=== PATIENT | male | born 1980 | race African-American/Black ===

== ENCOUNTER 2019-11-14 12:41 | Observation (INO) ==
[2019-11-14 14:40] LABS: Calcium 8.9 mg/dl (8.5-10.1); Creatinine Clr Calc Pharmacy 64.5 ml/min; Est GFR (African American) 90.8; Est GFR (Non-African American) 78.4
[2019-11-14] MEDS ORDERED: CALCIUM GLUCONATE 10% 1,000 MG in SODIUM CHLORIDE 0.9% 50 ML IV STA (14:44)
[2019-11-14] MEDS ORDERED: SODIUM POLYSTYRENE SULFONATE 15G/60ML SUSP PO STA (15:43)
[2019-11-14] MEDS ORDERED: INSULIN HUMAN REGULAR PER UNIT 10 UNITS in SYRINGE 9.9 ML IV STA (15:43)
--- NOTE | 2019-11-14 18:20 | History & Physical Report ---
Date of Service November 14, 2019 Assessment & Plan (1) Hyperkalemia: Admit telemetry Potassium 7.4 today at the [facility], now 6.6 Given regular insulin, calcium gluconate and kayexalate in the ED Will give 20 mg IV lasix IVF NSS @ 125 ml/hr Recheck cmp tonight and am (2) Diabetes mellitus: Type I Hyperglycemic at the [facility] at 441, 256 now Reports he only takes 70/30 at home - will consult pharmacy for glycemic management Bsgs ac & hs (3) Depression: Per records from the [facility] - patient takes Risperdal 1 mg qam, Risperdal 2 mg po qhs, Mirtazapine 15 mg @ bedtime, lithium 300 mg po BID, Will continue these medications however patient reports that he has been refusing these medications Obtain lithium level am History of Present Illness Mr. Hartman presents from the [facility] for abnormal lab work notable for hyperglycemia and hyperkalemia . He has been at the [facility] for about a week after checking himself in for suicidal ideation which he reports a history of. Pmhx: depression, anxiety, DMI, neuropathy Socia: hx of incarceration for assault, smokes 1/2 oz of marijuana per day, smokes ppd x23 years, works for [employer] Primary Care Provider: Wyatt Arriola Allergies Allergy/AdvReac Type Severity Reaction Status Date / Time shellfish derived Allergy Anaphylaxis Verified 11/14/19 14:28 Home Medications Home Medications Medication Instructions Recorded Confirmed Type insulin aspart U-100 [Novolog 0 unit SUBCUT TID 11/14/19 11/14/19 History Flexpen U-100 Insulin] Past Med/Surg History Medical History Diabetes mellitus Surgical History No pertinent past surgical history Family History Other No pertinent family history Social History Preferred Language: Citizen Of The [place] Feels Safe at Home: Yes Smoking Status: Current every day smoker Review of Systems Constitutional: no fever and no chills Respiratory: no cough and no dyspnea Cardiovascular: no chest pain, no palpitations and no lightheadedness Gastrointestinal: no abdominal pain, no nausea, no vomiting, no constipation and no diarrhea/loose stools Genitourinary: no dysuria and no urinary frequency Musculoskeletal: no back pain, no neck pain and no joint pain Integumentary: no rash Neurologic: no dizziness and no headache(s) Endocrine: + fatigue; no polydipsia and no polyuria Physical Exam Physical Exam: General: no distress Eyes: normal inspection, PERLL Respiratory: chest non tender, clear to auscultation, normal breath sounds, no respiratory distress, no accessory muscle use Cardiac: regular rate and rhythm, no rub or gallop, no murmur, no edema, no jvd GI/: active bowel sounds, no abd pain or tenderness, soft, non distended Extremities: normal range of motion, normal strength, non tender Neuro/Psych: alert and oriented x 3, normal mood and affect Skin: normal color, dry Results & Data Vital Signs (Past 12 Hours) Vital Signs Temp Pulse Pulse Resp BP BP Pulse Ox 11/14/19 17:26 102 H 20 128/94 100 11/14/19 15:26 84 16 123/85 98 11/14/19 12:50 36.9 C 103 H 18 121/80 100 Code Status & VTE Plan Code Status full PG Care Time/CCT Total # of Minutes Spent Total Time Spent with Patient: Total time spent is greater than 50% in coordination of care (as documented) at patient's floor/unit and/or counseling patient: Coding Level of Care Code 03379 Initial Inpt Care Lvl 3 Diagnoses Hyperkalemia E87.5 Diabetes mellitus E11.9 Depression F32.9
--- NOTE | 2019-11-14 19:31 | Emergency Department Note ---
Entered by Vlad Milian acting as a scribe for Umberto Toribio History of Present Illness General Chief complaint: Abnormal Labs/Diagnostic Testing Stated complaint: HI POTASSIUM&BLOOD SUGER,DIABETIC Time Seen by Provider: 11/14/19 13:55 Source: patient History of Present Illness Onset (ago): hour(s) (this morning) Severity: severe (7.4) Pain Consistency: + constant Quality: + other (elevated potassium) Associated symptoms: no chest pain, no headaches and no shortness of breath The patient is a 39 y/o male who presents to the ED w/ CC of a elevated, potassium level of 7.4 beginning this morning. The patient states he is feeling "alright" and denies current discomfort. He reports a history of DM and has been taking his insulin. The patient notes he does not have any other medications. The patient is a voluntary admission at the [facility] and according to the notes from psychiatrist the patient has been eating a large amount of bananas recently. The patient denies chest pain, shortness of breath, and headaches. Home Medications Home Medications Medication Instructions Recorded Confirmed Type insulin aspart U-100 [Novolog 0 unit SUBCUT TID 11/14/19 11/14/19 History Flexpen U-100 Insulin] Allergies Allergy/AdvReac Type Severity Reaction Status Date / Time shellfish derived Allergy Anaphylaxis Verified 11/14/19 14:28 Past Med/Surg History Medical History Diabetes mellitus Surgical History No pertinent past surgical history Family History Other No pertinent family history Social History Preferred Language: Georgian Feels Safe at Home: Yes Smoking Status: Current every day smoker Review of Systems See HPI for pertinent positives & negatives. and A total of 10 systems reviewed and were otherwise negative Physical Exam Vital Signs Vital Signs - 24 hr 11/14/19 12:50 11/14/19 15:26 11/14/19 17:26 Temperature 36.9 C Temperature Source Oral Pulse Rate 103 H Pulse Rate [Apical] 84 102 H Pulse Rhythm Regular Pulse Rhythm [Apical] Regular Pulse Strength Normal Respiratory Rate 18 16 20 Respiratory Effort / Characteristics Non-Labored Spontaneous Non-Labored Spontaneous Non-Labored Spontaneous Respiratory Depth Normal Normal Normal Respiratory Pattern Regular Regular Blood Pressure 121/80 Blood Pressure [Right Arm] 123/85 128/94 Blood Pressure Mean 93 Blood Pressure Mean [Right Arm] 97 105 Blood Pressure Position Sitting Blood Pressure Position [Right Arm] Lying Pulse Oximetry 100 98 100 Oxygen Delivery Method Room Air Room Air Room Air Sepsis Recent Fever Within 48 Hours No Sepsis New/Unexplained Change in Mental Status No Sepsis Action Taken by Nursing No Action Required GENERAL: He is oriented to person, place, and time. He appears well-developed and well-nourished. He does not appear distressed. HENT: Exam performed. - Head: Normocephalic and atraumatic. - Right Ear: External ear normal. No mastoid tenderness. - Left Ear: External ear normal. No mastoid tenderness. - Mouth/Throat: The oropharynx is clear and moist. No trismus in the jaw. No dental abscesses or uvula swelling. No oropharyngeal exudate or tonsillar abscesses. EYES: Conjunctivae and EOM are normal. Pupils are equal, round, and reactive to light. Right eye exhibits no discharge. Left eye exhibits no discharge. No scleral icterus. NECK: Normal range of motion. Neck supple. No JVD present. No spinous process tenderness present. No carotid bruit present. No rigidity. No tracheal deviation and normal range of motion present. No Brudzinski's sign and no Kernig's sign noted. CV: Normal rate, regular rhythm, normal heart sounds and intact distal pulses. There is no peripheral edema. Palpable radial pulses bue. PULM/CHEST: Effort normal and breath sounds normal. No respiratory distress. No stridor. He has no wheezes. He has no rales. - Chest Wall: He exhibits no tenderness. ABD: The abdomen is soft. Bowel sounds are normal. He has no distension. No mass is present. There is no tenderness. There is no rebound, no guarding, no Singlteon's sign and no tenderness at McBurney's point. Rovsig negative. MUSC/SKEL: Normal range of motion. There is no peripheral edema, tenderness or deformity. LYMPH: No cervical adenopathy. NEURO: He is alert and oriented to person, place, and time. He has normal strength. No cranial nerve deficit or sensory deficit. Coordination and gait normal. GCS eye subscore is 4. GCS verbal subscore is 5. GCS motor subscore is 6. Cerebellar tests wnl. SKIN: Skin is warm and dry. He is not diaphoretic. PSYCH: He has a bizarre mood and affect. Behavior is normal. Judgment and thought content normal. Course Course 1355: Past medical records reviewed. The patient was evaluated in room C07. A complete history and physical exam was performed. Review of records from the [facility] shows the patient was given 28 units of Levemir. The patient had a glucose level of 441 and a potassium of 7.4. His EKG at the [facility], per my interpretation, was SR with a rate of 96. Intervals were wnl. Peak t-waves in leads I, II, III, AVF, and V2-V6. Per the notes from the psychiatrist, the patient be any a large quantity of bananas. 1547: Vital signs stable. Labs show hyperkalemia, potassium 6.6. The patient was given Kayexalate, calcium gluconate, and insulin in the ED to lower his potassium level. I reviewed the patient's case with Dr. Huang, [facility] Hospitalist. She will evaluate the patient for further management. Administered Medications Discontinued Medications Calcium Gluconate 1,000 mg/ (Sodium Chloride) 60 mls @ 240 mls/hr IV NOW STA Stop: 11/14/19 14:58 Last Infusion: 11/14/19 15:19 Dose: 0 mls/hr Documented by: [id number] Admin: 11/14/19 15:04 Dose: 240 mls/hr Documented by: [id number] Insulin Human Regular 10 units (/ Syringe) 9.9 mls @ 3 mls/sec IV ONE STA Stop: 11/14/19 15:44 Last Admin: 11/14/19 16:12 Dose: 3 mls/sec Documented by: [id number] Cosigned by: [id number] Sodium Polystyrene Sulfonate (Kayexalate) 15 gm PO NOW STA Stop: 11/14/19 15:44 Last Admin: 11/14/19 16:12 Dose: 15 gm Documented by: [id number] Critical Care Time Critical Care Time: Yes Total Critical Care Time: 37 I have personally spent 37 minutes of critical care time in the direct management of this patient. This includes bedside care, interpretation of diagnostic studies, and testing, discussion with consultants, patient, and family members, and other required patient management activities. This 37 minutes is in excess of all separately billable procedures. Medical Decision Making Medical Records Attestation: I reviewed the patient's medical records. Home Medications Current Medication List: was personally reviewed by me Laboratory Data Attestation: I reviewed the patient's lab results. Result diagrams: 11/14/19 15:00 Lab Results 11/14/19 11/14/19 11/14/19 Range/Units 12:48 14:08 15:00 Sodium 138 (136-145) mmol/L Potassium 6.6 H* (3.5-5.1) mmol/L Chloride 108 H (98-107) mmol/L Carbon Dioxide 28 (21-32) mmol/L Anion Gap 3.0 (3-11) BUN 26 H (7-18) mg/dl Creatinine 1.18 (0.6-1.4) mg/dl Est Cr Clr Drug Dosing 64.5 ml/min Est GFR ( Amer) 90.8 Est GFR (Non-Af Amer) 78.4 BUN/Creatinine Ratio 22.0 H (10-20) Glucose 270 H (70-99) mg/dl POC Glucose 273 H (70-99) mg/dl Calcium 8.9 (8.5-10.1) mg/dl 11/14/19 Range/Units 15:30 Sodium (136-145) mmol/L Potassium (3.5-5.1) mmol/L Chloride (98-107) mmol/L Carbon Dioxide (21-32) mmol/L Anion Gap (3-11) BUN (7-18) mg/dl Creatinine (0.6-1.4) mg/dl Est Cr Clr Drug Dosing ml/min Est GFR ( Amer) Est GFR (Non-Af Amer) BUN/Creatinine Ratio (10-20) Glucose (70-99) mg/dl POC Glucose 257 H (70-99) mg/dl Calcium (8.5-10.1) mg/dl ECG Data Attestation: I personally reviewed and interpreted this ECG as follows: Indication: + toxicologic Rate (beats per minute): 94 Rhythm: + sinus rhythm ECG Intervals/blocks: + Normal QRS and + Normal QT-c ECG ST segments: no ST depression and no ST elevation ECG Findings: + Peaked T waves (Leads I, II, III, AVF, V2-V6) Blood Pressure Blood Pressure Findings: Elevated blood pressure Blood Pressure Disposition: further management by hospitalist [place] Narrative 1355: Past medical records reviewed. The patient was evaluated in room C07. A co mplete history and physical exam was performed. Review of records from the [facility] shows the patient was given 28 units of Levemir. The patient had a glucose level of 441 and a potassium of 7.4. His EKG at the [facility], per my interpretation, was SR with a rate of 96. Intervals were wnl. Peak t-waves in leads I, II, III, AVF, and V2-V6. Per the notes from the psychiatrist, the patient be any a large quantity of bananas. 1547: Vital signs stable. Labs show hyperkalemia, potassium 6.6. The patient was given Kayexalate, calcium gluconate, and insulin in the ED to lower his potassium level. I reviewed the patient's case with Dr. Huang, [facility] Hospitalist. She will evaluate the patient for further management. Impression & Plan Hyperkalemia Discharge Plan Visit Data Chief Complaint: Abnormal Labs/Diagnostic Testing Stated Complaint: HI POTASSIUM&BLOOD SUGER,DIABETIC ED Provider: Umberto Toribio Discharge Problem: Hyperkalemia Patient Disposition: Being Evaluated by Hospitalist Discharge Instructions Interventions: ED Discharge Assessment Last Done: 11/14/19 19:11 Forms Stand Alone Forms: My [facility] Prescriptions Prescriptions: No Action insulin aspart U-100 [Novolog Flexpen U-100 Insulin] 100 unit/mL (3 mL) Insulin Pen 0 unit SUBCUT TID RF: 0 Referrals Referrals: Wyatt Arriola [Primary Care Provider] - The scribe's documentation has been prepared under my direction and personally reviewed by me in its entirety. I confirm that the note above accurately reflects all work, treatment, procedures, and medical decision making performed by me.
[2019-11-14] MEDS ORDERED: FUROSEMIDE 40 MG/4 ML VIAL IV STA (19:38)
[2019-11-14] MEDS ORDERED: PHARMACY GLYCEMIC MGMT CONSULT PRN (20:02)
[2019-11-14] MEDS ORDERED: CARBOHYDRATES FOR HYPOGLYCEMIA PO PRN (20:15)
[2019-11-14] MEDS ORDERED: DEXTROSE 50% 50 ML SYRINGE IV PRN (20:15)
[2019-11-14] MEDS ORDERED: GLUCOSE 40% GEL 15 GM TUBE PO PRN (20:15)
[2019-11-14] MEDS ORDERED: GLUCAGON FOR INJ 1 MG VIAL IM PRN (20:15)
[2019-11-14] MEDS ORDERED: GLUCOSE 10 TABS/TUBE PO PRN (20:15)
[2019-11-14 20:26] LABS: Basophils # (auto) 0.02 K/uL (0-0.2); Basophils % (auto) 0.2 %; Eosinophils % (auto) 0.9 %; Hematocrit (blood only) 34.1 % (42-52); Hemoglobin 11.6 g/dL (14.0-18.0); Immature Granulocytes # (auto) 0.05 K/uL (0.00-0.02); Immature Granulocytes % (auto) 0.4 %; Lymphocytes # (auto) 4.25 K/uL (1.2-3.4); Lymphocytes % (auto) 37.8 %; Mean Corpuscular Hemoglobin 28.9 pg (25-34); Mean Platelet Volume 8.8 fL (7.4-10.4); Monocytes # (auto) 0.96 K/uL (0.11-0.59); Monocytes % (auto) 8.5 %; Neutrophils # (auto) 5.86 K/uL (1.4-6.5); Neutrophils % (auto) 52.2 %; Platelet Count 505 K/uL (130-400); RDW Coefficient of Variation 14.5 % (11.5-14.5); Red Blood Count 4.01 M/uL (4.7-6.1); White Blood Count 11.24 K/uL (4.8-10.8)
[2019-11-14 20:53] LABS: Albumin Level 3.1 gm/dl (3.4-5.0); BUN Creatinine Ratio 20.1 (10-20); Calcium 9.2 mg/dl (8.5-10.1); Creatinine Clr Calc Pharmacy 64.4 ml/min; Est GFR (African American) 93.7; Est GFR (Non-African American) 80.8; Magnesium 2.3 mg/dl (1.8-2.4)
[2019-11-14 20:56] LABS: Albumin Globulin Ratio 0.8 (0.9-2); Bilirubin,Total 0.1 mg/dl (0.2-1); Globulin 4.1 gm/dl (2.5-4.0); Total Protein 7.2 gm/dl (6.4-8.2)
[2019-11-14 21:00] LABS: Potassium 5.4 mmol/L (3.5-5.1)
[2019-11-14] MEDS ORDERED: risperiDONE 2 MG TABLET PO SCH (21:00)
[2019-11-14] MEDS ORDERED: MIRTAZAPINE TAB 15 MG TAB PO SCH (21:00)
[2019-11-14] MEDS: SODIUM CHLORIDE 0.9% 1000ML 1,000 ML IV SCH (21:03)
[2019-11-14] MEDS: INSULIN HUMAN NPH SC SCH (21:03)
[2019-11-14] MEDS: INSULIN ASPART 100 UNITS/ML 3 ML PEN SC SCH (21:04)
[2019-11-14] MEDS: LITHIUM CARBONATE 300 MG TAB PO SCH (21:04)
--- NOTE | 2019-11-14 21:37 | Pharmacy Report ---
Glycemic Control Consultation - Date of Service November 14, 2019 - Scope Scope: Glycemic Pharmacist consulted for glycemic control and to write orders per [facility] inpatient glycemic control protocol - Objective Weight: 51.8 kg Accuchecks BSG (last 24hrs): 11/14/19 11/14/19 11/14/19 12:48 14:08 15:30 Glucose 270 H POC Glucose 273 H 257 H 11/14/19 11/14/19 19:58 20:04 Glucose 187 H POC Glucose 173 H Laboratory Data (last 24hrs): 11/14/19 11/14/19 11/14/19 14:08 15:00 20:04 Potassium 6.6 H* 5.4 H D Carbon Dioxide 28 29 Anion Gap 3.0 3.0 Creatinine 1.18 1.15 Est Cr Clr Drug Dosing 64.5 64.4 - Recent Pertinent Medications Outpatient Anti-diabetic Regimen: * 70/30 Pre-mixed insulin: 20 units SQ BIDM ? Pt unsure of dosing - Assessment & Plan Assessment & Plan: ASSESSMENT: * 39yo T1DM male with unknown degree of outpatient control. No recent A1c reported. Pt unsure of outpatient insulin dosing. * Outpatient regimen is premixed basal/prandial insulin of 70/30 mix insulin. * Pre-mixed insulin is difficult to titrate since it is already in a fixed distribution of basal:prandial insulin. Continuing pre-mixed insulin for admission typically lead to hypoglycemia d/t changing PO status but rapid acting insulin is unable to be held. * Home regimen will be held for admission per pharmacy consult. Will utilize recommended regimen of SQ basal bolus insulin regimen with individual components of NPH + NovoLog (CF+CR) * Outpatient dosing is ~ 40 units/day. Will split 50% basal : 50% prandial and titrate based on BSG trends. PLAN FOR INPATIENT GLYCEMIC CONTROL: * Basal insulin * NPH 10 units SQ BIDM * Bolus insulin * NovoLog per scale ACHS or Q6hrs while NPO * Goal Range: Low 110 mg/dL - High 140 mg/dL * Correction Factor: 40 mg/dL/unit * Nutritional / Prandial insulin per carb ratio of 1 unit per 13 grams CHO consumed * Please note that the plan above was derived based on current level of insulin resistance and hospital stress. These recommendations are appropriate for inpatient admission only. Plan of care upon discharge will need to be reassessed to avoid potential outpatient hypo/hyperglycemia. Thank you.
[2019-11-14] MEDS: PREGABALIN 75 MG CAP PO SCH (22:46)
[2019-11-15] MEDS: SODIUM CHLORIDE 0.9% 1000ML 1,000 ML IV SCH ×2 (04:31→13:07)
--- NOTE | 2019-11-15 06:38 | Electrocardiogram Report ---
Test Reason : Blood Pressure : / mmHG Vent. Rate : 094 BPM Atrial Rate : 094 BPM P-R Int : 130 ms QRS Dur : 076 ms QT Int : 326 ms P-R-T Axes : 062 046 052 degrees QTc Int : 407 ms Normal sinus rhythm Normal ECG No previous ECGs available Confirmed by Shubham Doyle ([id number]) on 11/15/2019 6:37:37 AM Referred By: Wyatt Arriola Confirmed By:Shubham Doyle
[2019-11-15 07:17] LABS: Basophils # (auto) 0.01 K/uL (0-0.2); Basophils % (auto) 0.1 %; Eosinophils # (auto) 0.12 K/uL (0-0.5); Eosinophils % (auto) 1.1 %; Hematocrit (blood only) 31.6 % (42-52); Hemoglobin 10.7 g/dL (14.0-18.0); Immature Granulocytes # (auto) 0.05 K/uL (0.00-0.02); Immature Granulocytes % (auto) 0.5 %; Lymphocytes # (auto) 4.38 K/uL (1.2-3.4); Lymphocytes % (auto) 41.8 %; Mean Corpuscular Hemoglobin 28.8 pg (25-34); Mean Corpuscular Hgb Conc 33.9 g/dL (32-36); Mean Corpuscular Volume 84.9 fL (80-100); Mean Platelet Volume 8.6 fL (7.4-10.4); Monocytes # (auto) 0.89 K/uL (0.11-0.59); Monocytes % (auto) 8.5 %; Neutrophils # (auto) 5.04 K/uL (1.4-6.5); Platelet Count 447 K/uL (130-400); RDW Coefficient of Variation 14.7 % (11.5-14.5); RDW Standard Deviation 45.8 fL (36.4-46.3); Red Blood Count 3.72 M/uL (4.7-6.1); White Blood Count 10.49 K/uL (4.8-10.8)
[2019-11-15 07:52] LABS: Albumin Level 2.4 gm/dl (3.4-5.0); BUN Creatinine Ratio 19.7 (10-20); Calcium 8.5 mg/dl (8.5-10.1); Creatinine Clr Calc Pharmacy 77.2 ml/min; Est GFR (African American) 112.3; Est GFR (Non-African American) 96.9
[2019-11-15 07:55] LABS: Albumin Globulin Ratio 0.6 (0.9-2); Bilirubin,Total 0.1 mg/dl (0.2-1); Globulin 3.7 gm/dl (2.5-4.0); Total Protein 6.1 gm/dl (6.4-8.2)
[2019-11-15] MEDS: INSULIN ASPART 100 UNITS/ML 3 ML PEN SC SCH ×3 (08:24→18:14)
[2019-11-15] MEDS: INSULIN HUMAN NPH SC SCH (08:25)
[2019-11-15] MEDS: LITHIUM CARBONATE 300 MG TAB PO SCH (08:27)
[2019-11-15] MEDS: PREGABALIN 75 MG CAP PO SCH (08:32)
[2019-11-15] MEDS ORDERED: risperiDONE 1 MG TABLET PO SCH (09:00)
--- NOTE | 2019-11-15 14:27 | XRay Report ---
RIGHT FOOT 3 VIEWS CLINICAL HISTORY: First toe pain. FINDINGS: 3 views of the right foot are obtained. No prior studies are available for comparison at th e time of dictation. The skeletal structures are well mineralized. No fracture is seen. There is mild hallux valgus with minimal arthritic change at the first metatarsophalangeal joint. The overlying so ft tissues are within normal limits. IMPRESSION: 1. No acute bony abnormality is identified. 2. Mild hallux valgus with minimal degenerative change at the first metatarsophalangeal joint. Electronically signed by: Collin Harrington M.D. 11/15/2019 2:25 PM
--- NOTE | 2019-11-15 15:00 | Pharmacy Report ---
Pharmacy Glycemic Short Note 2 - Date of Service November 15, 2019 - Glycemic Short BSG Results (Last 24 hours): 11/14/19 11/14/19 11/14/19 15:30 19:58 20:04 Glucose 187 H POC Glucose 257 H 173 H 11/15/19 11/15/19 11/15/19 06:23 07:20 11:47 Glucose 177 H POC Glucose 186 H 230 H OUTPATIENT ANTIDIABETIC REGIMEN: * 70/30 20units BIDM ASSESSMENT: * BSGs still elevated today. lunch hyperglycemia likely due to carb-heavy breakfast. Spoke with attending hospitalist, per Marybeth Arriola his most recent A1C was 11%. [facility]'s A1C was sent to [facility]. PLAN FOR INPATIENT GLYCEMIC CONTROL: * Basal insulin - increase * Lantus NPH 12 units BIDM (increased from 10 units BIDM) * Bolus insulin - tightened * NovoLog per scale ACHS or Q6hrs while NPO * Goal Range: Low 110 mg/dL - High 140 mg/dL * Correction Factor: 40 mg/dL/unit * Nutritional / Prandial insulin per carb ratio of 1 unit per 10 grams CHO consumed
--- NOTE | 2019-11-15 15:07 | Discharge Summary ---
Date of Service November 15, 2019 Admission HPI Per Admitting Provider Hyperkalemia Principal Diagnosis Hyperkalemia Discharge Exam Constitutional WD/WN, vitals as above Respiratory normal respiratory effort, lungs clear to auscultation Cardiovascular RRR, no murmur, no edema Gastrointestinal (Abdomen) Inspection/Auscultation: abdomen normal to inspection and normal bowel sounds; abdomen not distended Percussion/Palpation: abdomen soft; abdomen nontender Musculoskeletal no cyanosis or clubbing, extremities motor strength 5/5 Skin no rashes, warm and dry Neurologic moves all extremities and awake Psychiatric Orientation: oriented x 3 Eye Contact: good eye contact Speech: normal rate/rhythm/volume of speech Affect: + depressed affect and + tearful affect Discharge Data Allergies Allergy/AdvReac Type Severity Reaction Status Date / Time shellfish derived Allergy Anaphylaxis Verified 11/14/19 14:28 Consultations 11/14/19 15:47 ED Decision to Admit Stat 11/14/19 19:38 Consult Case Management - Discharge Planning Routine 11/14/19 20:18 Consult Behavioral Health Liaison Routine 11/15/19 09:52 Consult Psychiatry Routine Hospital Course (1) Hyperkalemia: Potassium 7.4 on admission at the [facility], now resolved at 5 Given regular insulin, calcium gluconate and kayexalate in the ED Given 20 mg IV lasix IVF NSS @ 125 ml/hr (2) Diabetes mellitus: Type I Hyperglycemic at the [facility] at 441, now under better control Reports he only takes 70/30 at home - will consult pharmacy for glycemic management - discussed with pharmacist - will send patient home with his usual home regimen of 70/30 On hypoglycemic episode this afternoon resolved after glucose administered Bsgs ac & hs (3) Depression: Per records from the [facility] - patient takes Risperdal 1 mg qam, Risperdal 2 mg po qhs, Mirtazapine 15 mg @ bedtime, lithium 300 mg po BID, Will continue these medications however patient reports that he has been refusing these medications Obtain lithium level < 0.2 Total Time Total Time Spent Total Time Spent (In Minutes): greater than 30 mintues Discharge Plan Discharge Items Patient Disposition: Transfer Behavioral Health Fac Reason For Visit: HYPERKALEMIA Discharge Diagnosis: Hyperkalemia Activity: Resume your previous activity Non-emergency contact: Primary Care Provider Call non-emergency contact if: you have any medication questions Follow-up/Referrals: Wyatt Arriola [Primary Care Provider] - Diet: Carb Count or DM1 Addtl Attending Provider Instructions: (1) Hyperkalemia (high potassium level): Potassium 7.4 at the [facility], now 5 which is normal (2) Diabetes mellitus: Type I Hyperglycemic at the [facility] at 441, now below 200 Please return to your home dosing of 70/30 20 units twice per day Check your blood sugars before meals and before bedtime Please see your primary care provider within about a week. You may need follow up blood work at that time Your A1c (measure of 3 months average blood sugar) is still pending. (3) Depression: Please obtain prescriptions for your psychiatric medications from the [facility]. Your lithium level was not therapeutic in your blood yet. (4) Right toe pain Your foot X ray showed no a acute fractures (breaks) or soft tissue swelling. You do have some mild degenerative changes which essentially means some mild arthritis in the joint. If you are having pain you can take Tylenol 1000 mg 3 times per day, every 8 hours. Do not take more than 3000 mg per day Pending Studies at Discharge: Yes Studies:: A1c Stand-Alone Forms: My [facility] Skilled Items DNR: No Lines: None Urinary Catheter: No Medications and DC Order Prescriptions: New lithium carbonate 300 mg Tablet 300 mg PO BID Qty: 60 RF: 0 insulin NPH and regular human 100 unit/mL (70-30) insulin pen 20 units SQ BID Qty: 15 RF: 0 mirtazapine 15 mg Tablet 15 mg PO HS Qty: 30 RF: 0 risperidone 1 mg Tablet 1 mg PO QAM Qty: 30 RF: 0 risperidone 2 mg Tablet 2 mg PO HS Qty: 30 RF: 0 Discontinued insulin aspart U-100 [Novolog Flexpen U-100 Insulin] 100 unit/mL (3 mL) Insulin Pen 0 unit SUBCUT TID RF: 0 Discharge Orders: Discharge Order (Routine); Ordered 11/15/19 Ordered By: Rina Hagan/Other Patient Handouts: Hypoglycemia Admission Data Admit Date/Time: 11/14/19 18:15 Attending Provider: Kraig Stafford Admit Provider: Kraig Stafford Primary Care Provider: Wyatt Arriola Other Providers: Zion Huang ; Oumou Devlin Supervising Physician Co-Signing Physician Notes I supervised Rina Junior NP on this patient's care. I examined the patient today independently of her. I discussed the plan of care with her with the plan being as written in her note except for any following changes/exceptions: None. Tearful at his situation in life which is very unfortunate. He really does not like the Arriola as he feels like they do not listen to his DM needs. He is not suicidal though he is very sad about his situation. Coding Level of Care Code D/C Day Management >30 mins Diagnoses Hyperkalemia E87.5 Diabetes mellitus E11.9 Depression F32.9
--- NOTE | 2019-11-15 15:07 | Communication Note ---
Date of Service: November 15, 2019 Psychiatric consultation requested regarding "bipolar depression." Pt was transferred from the [facility], where he was restarted on medications - admitted voluntarily on 11/07/2019. He was transferred and admitted medically for hyperkalemia. It is reported that the patient was expected to be cleared for discharge from the [facility] around the time of transfer for medical treatment, and it is uncertain he would require readmission when he returns to the facility. However, his belongings are at their facility and he would need to be transported back after medical clearance to complete the psychiatric discharge process. Psychiatric nurse liaison evaluated patient regarding 302 criteria, which patient denied. He denied SI, HI, hallucinations, and active psychosis. Plan reported to this provider is for discharge back to the [facility] at time of medical clearance in order to return patient's belongings and complete the psychiatric discharge process. It was reported that there were no further needs from our service beyond assessing for criteria for re-admission. The facility was reportedly satisfied with report provided by psychiatric nurse liaison. It was reported to this provider that further evaluation was not needed. Please reach out to our service with any additional concerns or updates.
[2019-11-15] MEDS ORDERED: INSULIN HUMAN NPH SC SCH (17:00)
[2019-11-16 03:20] LABS: HA1C 11.7 (<5.7)
== END 2019-11-15 20:25 ==
LOC: ED 12:41 → INTOOBSV 18:15 → 2E 18:15